=== PATIENT | male | born 1995 | race Caucasian/White ===

== ENCOUNTER → 2017-08-02 | Outpatient (CLI) | payer OTHER ==
--- NOTE | 2017-08-03 10:16 | MR ---
EXAMINATION TYPE: MR brain wo/w con DATE OF EXAM: 08/02/2017 COMPARISON: NONE HISTORY: 22-year-old male with unspecified disturbance of skin sensation, Numbness of body TECHNIQUE: Multiplanar, multisequence images of the brain and brainstem were acquired before and aft er administration of 7.5 mL IV Gadavist. Diffusion weighted imaging is performed. FINDINGS: No evidence for acute infarction, hemorrhage, mass, mass effect, midline shift, herniation, effacemen t of basal cisterns, or extra-axial fluid collection. The ventricles and sulci are age-appropriate. Major intracranial flow voids are intact. T2/FLAIR weighted sequences show no white matter signal abnormality. Midline structures demonstrate normal morphology. The craniocervical junction is normal. Post contrast images demonstrate no evidence of pathologic enhancement. Dural venous sinuses are pat ent. The visualized sinuses are clear and the globes are intact. IMPRESSION: No intracranial abnormality seen.
== END | disposition home or self-care (01) ==
LOC: RADMRIMAIN 11:58
PROVIDERS: ATTEND Family Medicine
DX: R20.9 Unspecified disturbances of skin sensation (principal)
CPT/HCPCS: 70553; A9581; 95819

== ENCOUNTER → 2017-08-02 | Outpatient (CLI) | payer OTHER ==
--- NOTE | 2017-08-02 20:00 | EEG ---
ELECTROENCEPHALOGRAM REPORT DATE OF EE08/02/2017. REFERRING PHYSICIAN: Dr. Jolly. CONSULTING AND INTERPRETING PHYSICIAN: Dr. Edi Palafox. INDICATION FOR EXAMINATION: This patient is a 22-year-old male being evaluated for symptoms of paresthesia and numbness. Apparently symptoms involve both upper and lower extremities. He was also noted to have increased eye fluttering. AGE: 22. EEG FINDINGS: A routine 21 channel awake digital EEG recording was accomplished utilizing the 10-20 international system with bipolar and referential montages. The background activity in the most alert resting state consists of a low to medium amplitude, fairly well developed and well sustained 8-9 hertz activity over the posterior head regions. This posterior rhythm attenuates to eye opening. There is a small amount of low amplitude 18-20 Hz beta activity seen maximally over the anterior head regions. Muscle and movement artifact was observed on a few occasions during the tracing. Hyperventilation failed to add any additional information to the tracing. No further activation was noted. Photic stimulation at flash frequencies of 2-30 Hz produced a good symmetrical occipital driving response. No epileptiform discharges were seen. IMPRESSION: This EEG is normal for the patient's age. The EEG failed to reveal any focal, lateralized or epileptiform abnormalities. Clinical correlation is recommended. MMODL / IJN: [id number] /
== END | disposition home or self-care (01) ==
LOC: NEUROMAIN 12:12
PROVIDERS: ATTEND Family Medicine
DX: R20.9 Unspecified disturbances of skin sensation (principal)
CPT/HCPCS: 95819